=== PATIENT | female | born 1950 | race Caucasian/White ===

== ENCOUNTER → 2017-12-19 | Outpatient (CLI) | payer MEDICARE, OTHER ==
[~2017-12-19] MED LIST: BENTYL20 MG PO; ENABLEX15 MG PO; ESTRACE0.5 MG PO; FOLIC ACID0.4 MG PO; HYDROCODON-ACE1 EAC7 PO; LYRICA 75 MG CA75 MG PO; NEXIUM40 MG PO; RHEUMATREX2.5 MG PO; SYNTHROID100 MCG PO; ZOFRAN ODT4 MG PO
== END ==
LOC: M.ULTRA 13:47
DX: I65.23 Occlusion and stenosis of bilateral carotid arteries (principal); I10 Essential (primary) hypertension; R68.89 Other general symptoms and signs; K57.92 Diverticulitis of intestine, part unspecified, without perforation or abscess without bleeding

== ENCOUNTER → 2018-01-01 | Outpatient (CLI) | payer MEDICARE, OTHER ==
[~2018-01-01] VITALS: Ht 165.1 cm; Wt 100.7 kg
[2018-01-01 11:10] LABS: HEMATOCRIT 33.5 % (37.0-47.0); HEMOGLOBIN 11.4 gm/dL (12.0-15.0); MCH 33.9 pg (26.0-34.0); MCHC 34.1 g/dL (28.0-37.0); MCV 99.3 fL (80.0-100.0); MPV 8.2 fl. (7.2-11.1); RBC 3.38 mil/uL (4.20-5.00); RDW-CV 15.7 % (10.5-14.5); WBC 5.8 thou/uL (4.0-11.0)
[2018-01-01 11:16] VITALS: BP 156/79
[2018-01-01 11:20] LABS: ANION GAP 10 mmol/L (7-16); BUN 27 mg/dL (7-18); CALCIUM 9.7 mg/dL (8.5-10.1); CHLORIDE 105 mmol/L (98-107); CO2 27 mmol/L (21-32); CREATININE 1.5 mg/dL (0.6-1.3); GLUCOSE 105 mg/dL (70-99); POTASSIUM 3.9 mmol/L (3.5-5.1); SODIUM 142 mmol/L (136-145)
[2018-01-01 11:21] LABS: APTT 25.2 Seconds (25.0-31.3); PROTIME 9.7 Seconds (9.20-11.50)
[2018-01-01 11:22] LABS: ALBUMIN 3.4 g/dL (3.4-5.0); ALKALINE PHOSPHATASE 86 U/L (46-116); CHOLESTEROL 205 mg/dL (<200); HDL CHOLESTEROL 49 mg/dL (>40); LDL CHOLESTEROL 133 mg/dL (<100); SERUM ASSESSMENT Clear; SGOT 23 U/L (15-37); SGPT 28 U/L (30-65); TC:HDL 4.2 Ratio (Not establshd); TOTAL BILIRUBIN 0.3 mg/dL (<0.1-1.0); TOTAL PROTEIN 6.9 g/dL (6.4-8.2); TRIGLYCERIDE 118 mg/dL (<150); VLDL 24 mg/dL (<40)
[2018-01-01 13:48] VITALS: BP 145/67
[2018-01-01 14:06] VITALS: BP 135/66
[2018-01-01 14:38] VITALS: BP 146/65
[2018-01-01 15:10] VITALS: BP 162/69
[2018-01-01 15:36] VITALS: BP 112/58
--- NOTE | 2018-01-01 16:00 | EKG ---
[place] [address] ELECTROCARDIOGRAM REPORT Name: ESCOBAR BOOTH Room: 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27 : 1950 Requested By: eDmetrius Lopez Order Number: [id number] Reading MD: Demetrius Lopez Measurements Intervals [place] Rate: 72 P: 39 AR: 190 QRS: 29 QRSD: 91 T: 147 QT: 351 QTc: 385 Interpretive Statements Sinus rhythm Probable LVH with secondary repol abnrm Minimal ST elevation, inferior leads Compared to ECG 10/13/2013 15:56:33 ST (T wave) deviation now present Myocardial infarct finding no longer present Electronically Signed On 01-01-2018 16:00:34 CLEANING TEAM MEMBER by Demetrius Lopez [email or web address] <ELECTRONICALLY SIGNED> By: Demetrius Lopez MD, FAC 01/01/18 1600 1110 1110 Demetrius Lopez MD, [facility] /EPI
--- NOTE | 2018-01-13 12:48 | CARD ---
[address] [address] CARDIAC CATH REPORT Name: ESCOBAR BOOTH Room: [facility]#: [id number] Admission: 01/01/18 Attend Phys: Demetrius Lopez MD Discharge: Date of : 50 Report #: [id number] THIS REPORT FOR: //name// APPROVED REPORT Patient Details Patient Status: Out-Patient Room #: The patient is a 67 year-old female Event Personnel Demetrius Lopez Table Tender, Cesilia Lagos RN Monitor, Carisa Boone RN, Kt El ARROumou (R) Scrub, Christelle Villaseñor RTR Monitor Procedures Performed Art Access - R radial artery Left Heart Cath w/or w/o Coronaries [id number] [facility] Hemostasis with Hemoband Admission/Lab Medications/Medications given during procedure Fentanyl IV 25 mcg, Midazolam (Versed) IV 1 mg, Lidocaine Subcut 8 ml, Nitroglycerin IA 200 mcg, Verapamil IA 2.5 mg, Heparin IV 5000 units Procedure Narrative A Slender Glidesheath sheath was inserted into the right radial artery. Coronary angiography was performed using coronary diagnostic catheters. The right coronary system was accessed and visualized with a DCR: [place] 4.0 5fr catheter. The left coronary system was accessed and visualized with a DCR: [place] 4.0 5fr catheter. The left ventricle was accessed and visualized with a DCR: [place] 4.0 5fr catheter. The patient tolerated the procedure well and there were no complications associated with the procedure. Intraoperative Conscious Sedation Sedation start time: 13:13 Case end Time: 13:26 Fentanyl 50 mcg Versed 2 mg Fluoro Time: 4.7 minutes Dose: DAP 94684 cGycm2 732.65 mGy Contrast Type and Amount: Omnipaque 140 ml Diagnostic Cath Left Main Normal. LAD The LAD exhibits 40% narrowing in its midportion[place] [address] CARDIAC CATH REPORT Name: ESCOBAR BOOTH Room: [facility]#: [id number] Admission: 01/01/18 Attend Phys: Demetrius Lopez MD Discharge: Date of : 50 Report #: [id number] otherwise free of significant disease. Diagonal 1 The first diagonal has minimal 10% plaquing proximally and is otherwise free of significant disease. Circumflex The circumflex coronary artery is normal in its proximal mid and distal portion. OM1 A single large branched first obtuse marginal branch is normal. Right Coronary The right coronary artery is normal in its proximal mid and distal portion. R PDA The right PDA is normal. RPLV The right posterior lateral LV branch is normal. Ramus A moderate size ramus branch is normal. Hemodynamics The aortic pressure is 135/79 mmHg with a mean of 104 mmHg. The left ventricular pressure is 145/12 mmHg with a mean of mmHg. The left ventricular end diastolic pressure is 32 mmHg. Conclusion 1. Mild nonocclusive atherosclerotic coronary artery disease as outlined above. 2. Normal left particular end-diastolic pressure. Recommendations 1. Continue aggressive medical management and risk factor modification. <ELECTRONICALLY SIGNED> By: Demetrius Lopez MD, FACC 01/13/18 1248 1248 1248Micjessica Lopez MD, FACC /INF
== END | disposition home or self-care (01) ==
LOC: M.CL 12-25 11:30
PROVIDERS: Internal Medicine Cardiovascular Disease
DX: I25.10 Atherosclerotic heart disease of native coronary artery without angina pectoris (principal); N18.3 Chronic kidney disease, stage 3 (moderate); J45.909 Unspecified asthma, uncomplicated; M79.7 Fibromyalgia; M19.90 Unspecified osteoarthritis, unspecified site; E03.9 Hypothyroidism, unspecified; M06.9 Rheumatoid arthritis, unspecified; Z88.0 Allergy status to penicillin; Z88.6 Allergy status to analgesic agent; Z98.890 Other specified postprocedural states; Z90.710 Acquired absence of both cervix and uterus; Z79.899 Other long term (current) drug therapy; Z79.891 Long term (current) use of opiate analgesic

== ENCOUNTER → 2018-02-05 | Outpatient (CLI) | payer MEDICARE, OTHER | LOC: M.ULTRA 09:08 | DX: K76.0 Fatty (change of) liver, not elsewhere classified (principal); R74.0 Nonspecific elevation of levels of transaminase and lactic acid dehydrogenase [LDH] ==

== ENCOUNTER → 2018-02-17 | Outpatient (CLI) | payer MEDICARE, OTHER ==
[2018-02-17 11:09] LABS: CREATININE 1.5 mg/dL (0.6-1.3)
== END ==
LOC: M.LAB 10:30 → M.MRI 11:30
PROVIDERS: Nurse Practitioner
DX: N28.1 Cyst of kidney, acquired (principal); M47.899 Other spondylosis, site unspecified; R74.8 Abnormal levels of other serum enzymes; I12.9 Hypertensive chronic kidney disease with stage 1 through stage 4 chronic kidney disease, or unspecified chronic kidney disease; N18.9 Chronic kidney disease, unspecified; E03.9 Hypothyroidism, unspecified; M19.90 Unspecified osteoarthritis, unspecified site

== ENCOUNTER → 2018-06-16 | Outpatient (CLI) | payer MEDICARE, OTHER | LOC: M.RAD 14:21 | DX: M47.814 Spondylosis without myelopathy or radiculopathy, thoracic region (principal); R06.00 Dyspnea, unspecified; E03.9 Hypothyroidism, unspecified; J45.909 Unspecified asthma, uncomplicated; Z88.0 Allergy status to penicillin ==

== ENCOUNTER → 2018-08-20 | Outpatient (CLI) | payer MEDICARE, OTHER | LOC: M.RAD 13:26 | DX: Z12.31 Encounter for screening mammogram for malignant neoplasm of breast (principal) ==

== ENCOUNTER 2018-12-31 11:52 | Inpatient (IN) | payer MEDICARE, OTHER ==
[~2018-12-31] VITALS: Ht 165.1 cm; Wt 101.2 kg
[2018-12-31 11:59] VITALS: BP 142/78
[2018-12-31 12:32] LABS: ABSOLUTE EOSINOPHILS 0.1 thou/uL (0.0-0.7); ABSOLUTE LYMPHOCYTES 1.1 thou/uL (0.8-5.3); ABSOLUTE MONOCYTES 0.2 thou/uL (0.0-1.2); ABSOLUTE NEUTROPHILS 1.7 thou/uL (1.6-8.1); BASOPHILS 0.3 %; EOSINOPHILS 2.4 %; HEMOGLOBIN 12.7 gm/dL (12.0-15.0); LYMPHOCYTES 35.7 %; MCH 32.6 pg (26.0-34.0); MCHC 33.5 g/dL (28.0-37.0); MCV 97.3 fL (80.0-100.0); MONOCYTES 7.8 %; NUCLEATED RBCS 0 /100WBC; PLATELET COUNT* 209 thou/uL (150-400); POLYS 53.8 %; RDW-CV 15.1 % (10.5-14.5); WBC 3.2 thou/uL (4.0-11.0)
[2018-12-31 12:46] LABS: APTT 26.2 Seconds (25.0-31.3); PROTIME 10.1 Seconds (9.20-11.50)
[2018-12-31] MEDS ORDERED: QUETIAPINE FUM100 MG PO (12:47)
[2018-12-31] MEDS ORDERED: METHOTREXATE 22.5 MG PO (12:48)
[2018-12-31] MEDS ORDERED: ZANAFLEX4 MG PO (12:52)
[2018-12-31] MEDS ORDERED: MAXZIDE-25 MG1 EACH PO (12:53)
[2018-12-31] MEDS ORDERED: CALCITRIOL0.5 MCG PO (12:53)
[2018-12-31] MEDS ORDERED: VALACYCLOVIR500 MG PO (12:53)
[2018-12-31] MEDS ORDERED: ZETIA10 MG PO (12:54)
[2018-12-31] MEDS ORDERED: TRICOR145 MG PO (12:54)
[2018-12-31] MEDS ORDERED: ARAVA10 MG PO (12:54)
[2018-12-31] MEDS ORDERED: TYLENOL EXTRA500 MG PO (12:55)
[2018-12-31] MEDS ORDERED: CLEOCIN HCL150 MG PO (12:55)
[2018-12-31] MEDS ORDERED: FLAGYL500 M1 PO (12:56)
[2018-12-31] MEDS ORDERED: LOPERAMIDE 2 MG2 M1 PO (12:56)
[2018-12-31] MEDS ORDERED: PREDNISONE 10 M10 MG PO (12:56)
[2018-12-31] MEDS ORDERED: OXAYDO5 MG PO (12:58)
[2018-12-31 13:12] LABS: ANION GAP 11 mmol/L (7-16); BUN 41 mg/dL (7-18); CALCIUM 9.4 mg/dL (8.5-10.1); CHLORIDE 103 mmol/L (98-107); CO2 24 mmol/L (21-32); GLUCOSE 134 mg/dL (70-99); POTASSIUM 3.3 mmol/L (3.5-5.1); SODIUM 138 mmol/L (136-145); TROPONIN-I LEVEL <0.06 ng/mL (<0.06)
[2018-12-31 13:23] LABS: ALBUMIN 3.2 g/dL (3.4-5.0); ALKALINE PHOSPHATASE 57 U/L (46-116); NT-PRO BRAIN NAT PEPTIDE 151 pg/mL (<300); SGOT 30 U/L (15-37); SGPT 30 U/L (30-65); TOTAL BILIRUBIN 0.3 mg/dL (<0.1-1.0); TOTAL PROTEIN 6.9 g/dL (6.4-8.2)
--- NOTE | 2018-12-31 16:25 | EKG ---
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: : 1950 Requested By: Michael Renner Order Number: [id number] MD: Kristian Mao Measurements Intervals [place] Rate: 106 P: 69 NC: 159 QRS: 48 QRSD: 74 T: 74 QT: 309 QTc: 411 Interpretive Statements Sinus tachycardia Nonspecific repol abnormality, lateral leads Compared to ECG 01/01/2018 11:10:13 Sinus rhythm no longer present ST (T wave) deviation no longer present Electronically Signed On 12-31-2018 16:25:23 MICA LAMINATING MACHINE FEEDER by Kristian Mao [email or web address] <ELECTRONICALLY SIGNED> By: Kristian Mao MD, FAC 12/31/18 1625 1157 1157 Kristian Mao MD, [facility] /EPI
--- NOTE | 2018-12-31 16:28 | EKG ---
[place] [address] ELECTROCARDIOGRAM REPORT Name: ESCOBAR BOOTH Room: [place] [address] ADM IN [facility].#: [id number] Admission: 12/31/18 Attend Phys: Anastasiya Vogel Discharge: Date of : 50 Report #: [id number] THIS REPORT FOR: //name// [facility] ED Test Date: 2018-12-31 Test Time: 15:20:21 Pat Name: ESCOBAR BOOTH Department: Room: [place] [address] Gender: F Administrative Office Assistant: Lydia OLIVER : 1950 Requested By: Michael Renner Order Number: [id number] Deacon MD: Kristian Mao Measurements Intervals [place] Rate: 81 P: 49 NV: 166 QRS: 25 QRSD: 82 T: 84 QT: 364 QTc: 423 Interpretive Statements Sinus rhythm Borderline repolarization abnormality Electronically Signed On 12-31-2018 16:28:51 EMS EDUCATOR by Kristian Mao [email or web address] <ELECTRONICALLY SIGNED> By: Kristian Mao MD, [facility] 12/31/18 1628 1520 1520 Kristian Mao MD, FACC /EPI
[2018-12-31 17:00] VITALS: BP 136/45
--- NOTE | 2018-12-31 17:00 | NUR ---
ER ADMIT TO RM 218 TELEPHONE REPORT GIVEN PATIENT TO RM VIA CART ORIENTED TO RM AND CALL LIGHT C/O MARRERO, TREATED IN ER WILL REASSES CHIQUI
[2018-12-31 17:07] LABS: CALCIUM 9.3 mg/dL (8.5-10.1); CREATININE 1.8 mg/dL (0.6-1.3); MAGNESIUM 1.6 mg/dL (1.8-2.4); POTASSIUM 3.2 mmol/L (3.5-5.1)
[2018-12-31 20:00] VITALS: BP 113/51
[2018-12-31 22:38] LABS: URINE BILIRUBIN NEGATIVE (Negative); URINE BLOOD NEGATIVE (Negative); URINE CLARITY CLEAR; URINE COLOR YELLOW; URINE GLUCOSE-RANDOM NEGATIVE (Negative); URINE KETONES NEGATIVE (Negative); URINE LEUKOCYTES-REFLEX NEGATIVE (Negative); URINE NITRITE-REFLEX NEGATIVE (Negative); URINE PROTEIN NEGATIVE (Negative); URINE UROBILINOGEN 0.2 E.U./dl (0.2-1.0)
[2019-01-01] VITALS: BP 104/47
--- NOTE | 2019-01-01 03:33 | NUR ---
PT ALERT ORIENTED. UP TO BR WITH ONE PERSON ASSIST. PT STATED SHE THOUGHT SHE HAD A UTI. UA COLLECTED AND SENT BUT WAS NEGATIVE. PT STATED SHE HAD CDIF LAST MONTH AT [facility]. PT PLACED IN CDIF ISOLATION. PT HAD MARRERO OXYCODONE GIVEN. PT SLEPT AFTER PAIN MEDICATION. TELEMETRY SHOWS SR. MAGNESIUM AND POTASSIUM REPLACEMENT PER PROTOCAL. MG AND K ORDERED FOR AM. NS AT 125MLS/HR.
[2019-01-01 04:00] VITALS: BP 101/42
[2019-01-01 06:10] LABS: MAGNESIUM 2.6 mg/dL (1.8-2.4)
[2019-01-01 06:11] LABS: POTASSIUM 4.6 mmol/L (3.5-5.1)
--- NOTE | 2019-01-01 07:15 | NUR ---
CHANGE OF SHIFT, BEDSIDE REPORT GIVEN PATIENT SEEN AT BEDSIDE, IN BED ASLEEP ASSUMED PATIENT CARE
[2019-01-01 08:00] VITALS: BP 122/74
--- NOTE | 2019-01-01 09:30 | NUR ---
INITIAL ASSESSMENT: Pt evaluated for d/c planning needs. Reviewed chart and spoke with nurse and pt. Pt is alert and oriented. Pt lives in house and was independent with ADL's prior to admission to the hospital. Pt has walker and cane at home. Pt plans on returning home on d/c from hospital. Pt plans on having colon surgery at [facility] in the near future. Will remain available to assist as needed.
[2019-01-01 11:47] VITALS: BP 142/58
[2019-01-01 15:35] VITALS: BP 140/62
[2019-01-01 20:00] VITALS: BP 112/48
[2019-01-02 00:37] VITALS: BP 150/58
--- NOTE | 2019-01-02 04:09 | NUR ---
ASSUMED PT CARE AT APPROX. 1930. PT ALERT AND ORIENTED X4. VSS ON 2L/NC. REASSESSMENT COMPLETED AND CHARTED. EXECUTIVE ADMINISTRATOR IN PLACE TRACING SR. WITH COMPLAINTS OF HEADACHE RELIEVED BY TYLENOL GIVEN PER JAN. PT WAS ABLE TO SLEEP THROUGH THE NIGHT. CALL LIGHT WITHIN REACH. HOURLY ROUNDING DONE FOR PT SAFETY.
[2019-01-02 04:51] VITALS: BP 143/66
[2019-01-02 04:58] LABS: HEMATOCRIT 33.3 % (37.0-47.0); HEMOGLOBIN 11.3 gm/dL (12.0-15.0); MCH 33.3 pg (26.0-34.0); MPV 9.4 fl. (7.2-11.1); NUCLEATED RBCS 0 /100WBC; PLATELET COUNT* 170 thou/uL (150-400); RDW-CV 15.1 % (10.5-14.5); WBC 4.9 thou/uL (4.0-11.0)
[2019-01-02 08:00] VITALS: BP 106/63
[2019-01-02 08:06] LABS: ABSOLUTE LYMPHOCYTES 0.2 thou/uL (0.8-5.3); ABSOLUTE MONOCYTES 0.1 thou/uL (0.0-1.2); ABSOLUTE NEUTROPHILS 4.6 thou/uL (1.6-8.1)
[2019-01-02 08:07] LABS: MACROCYTES 1+; PLATELET ESTIMATE ADEQUATE
[2019-01-02] MEDS ORDERED: PREDNISONE 10 M10 MG PO (09:25)
[2019-01-02 12:00] VITALS: BP 150/61
[2019-01-02] MEDS ORDERED: BENTYL 20 MG TA20 M1 PO (12:27)
[2019-01-02] MEDS ORDERED: SYNTHROID100 MC1 PO (12:31)
[2019-01-02 12:47] VITALS: BP 150/61
--- NOTE | 2019-01-02 14:40 | NUR ---
ASSUMED CARE OF PT THIS AM ASSESSED AND DOCUMENTED. SEE CHART. PT D/C'D TO HOME. ALL CONSULTS OK WITH D/C. EDUCATION GIVEN RE FOLLOW UP, MEDICATIONS, AND DRS ORDERS. D/C'D IV AND CARDIAC MONITER. ALL BELONGINGS PACKED UP AND LEFT WITH PT ACCOMPANIED BY STAFF AND PTS SISTER. SCRIPT GIVEN.
== END 2019-01-02 14:41 | disposition home or self-care (01) | DRG 153 ==
LOC: M.ERS 11:52 → M.TBA-ER 14:31 → M.2W 14:31
PROVIDERS: Emergency Medicine Emergency Medical Services; ADMIT Internal Medicine
DX: J06.9 Acute upper respiratory infection, unspecified (principal); J45.909 Unspecified asthma, uncomplicated; N18.3 Chronic kidney disease, stage 3 (moderate); M79.7 Fibromyalgia; M19.90 Unspecified osteoarthritis, unspecified site; M06.9 Rheumatoid arthritis, unspecified; E88.81 Metabolic syndrome and other insulin resistance; G47.30 Sleep apnea, unspecified; R09.02 Hypoxemia; K58.9 Irritable bowel syndrome, unspecified; E03.9 Hypothyroidism, unspecified; Z90.710 Acquired absence of both cervix and uterus; Z79.899 Other long term (current) drug therapy; Z88.0 Allergy status to penicillin; Z88.5 Allergy status to narcotic agent

== ENCOUNTER → 2020-08-08 | Outpatient (CLI) | payer MEDICARE, OTHER ==
[~2020-08-08] MED LIST changes: +ARAVA10 MG PO; +BENTYL 20 MG TA20 M1 PO; +CALCITRIOL0.5 MCG PO; +CLEOCIN HCL150 MG PO; +FLAGYL500 M1 PO; +LOPERAMIDE 2 MG2 M1 PO; +MAXZIDE-25 MG1 EACH PO; +METHOTREXATE 22.5 MG PO; +OXAYDO5 MG PO; +PREDNISONE 10 M10 MG PO; +QUETIAPINE FUM100 MG PO; +SYNTHROID100 MC1 PO; +TRICOR145 MG PO; +TYLENOL EXTRA500 MG PO; +VALACYCLOVIR500 MG PO; +ZANAFLEX4 MG PO; +ZETIA10 MG PO
== END ==
LOC: M.RAD 09:58 → M.ULTRA 10:30
PROVIDERS: ATTEND Nurse Practitioner Family
DX: Z12.31 Encounter for screening mammogram for malignant neoplasm of breast (principal); R10.9 Unspecified abdominal pain; M79.89 Other specified soft tissue disorders